=== PATIENT | male | born 1975 | race Caucasian/White ===

== ENCOUNTER 2016-12-21 16:30 | Outpatient (RCR) | payer OTHER ==
[2016-11-03 13:41] VITALS: BP 124/85; PULSE 86; TEMP 97.5
[~2016-12-21] VITALS: Ht 182.9 cm; Wt 96.2 kg
[~2016-12-21 16:30] MED LIST: NEXIUM 40MG40 MG PO; SINGULAIR 110 MG/TAB PO
[2016-12-21] MEDS ORDERED: XOLAIR150 MG SQ (16:44)
[2016-12-21 16:45] VITALS: BP 119/89; PULSE 101; TEMP 98.1
== END 2017-02-01 | disposition home or self-care (01) ==
LOC: EUO
DX: J45.998 Other asthma (principal)

== ENCOUNTER 2017-03-23 14:00 | Outpatient (RCR) | payer OTHER ==
[2017-02-07 16:02] VITALS: BP 130/90; PULSE 95; TEMP 97.8
[~2017-03-23] VITALS: Ht 182.9 cm; Wt 97.0 kg
[~2017-03-23 14:00] MED LIST changes: +XOLAIR150 MG SQ
== END 2017-03-23 14:48 | disposition still patient (30) ==
LOC: EUO 14:00
DX: J45.998 Other asthma (principal)
CPT/HCPCS: J2357